=== PATIENT | female | born 1975 | race African-American/Black ===

== ENCOUNTER → 2024-02-29 | Outpatient (CLI) | payer OTHER ==
[2024-03-01 03:06] LABS: RUBELLA AB IGG-REFLAB 9.31 index (Immune >0.99)
[2024-03-01 07:07] LABS: RUBEOLA (MEASLES) IGG >300.0 AU/mL (Immune >16.4); VARICELLA ZOSTER IGG AB TITER 908 index (Immune >165)
== END | disposition home or self-care (01) ==
LOC: LABMN 11:26
PROVIDERS: ATTEND Internal Medicine
DX: Z02.1 Encounter for pre-employment examination (principal)
CPT/HCPCS: 86706; 86735; 86762; 86765; 86787